=== PATIENT | male | born 1965 | race Caucasian/White ===

== ENCOUNTER 2017-08-19 06:35 | Day surgery (SDC) | payer OTHER, SELFPAY ==
--- NOTE | 2017-08-18 22:52 | PCM.HP.BLA ---
History and Physical Date of Admission: 08/19/17 HISTORY OF PRESENT ILLNESS 51 year old man presents with a soft tissue mass on his right frontal scalp that has increased in size over the last several months. He denies any trauma. He denies any fever. He denies any recent infection or drainage. He states there is some discomfort when he bumps it. He presents at this time for further evaluation and treatment. PAST MEDICAL HISTORY Ankylosing spondylitis. Restless leg syndrome. Microscopic hematuria. Abnormal weight loss. Smoker. PAST SURGICAL HISTORY None MEDICATIONS Tramadol. ALLERGIES Codeine. SOCIAL HISTORY Patient is a smoker. Patient drinks alcohol occasionally. FAMILY HISTORY Patient is adopted. REVIEW OF SYSTEMS General - Denies fever, fatigue. Has some recent weight loss. Eyes - Denies eye pain. Denies cataracts and glaucoma. ENT - Denies nasal congestion and sore throat. Endocrine - Denies excessive thirst and urination. Skin - Has enlarging painful soft tissue mass right frontal scalp. Musculoskeletal - Has joint pain and joint stiffness. Denies weakness of muscles and joints. Has restless leg syndrome. Has ankylosing spondylitis. Has back pain. Neuro - Denies headaches. Cardiovascular - Denies fatique. Denies chest pain. Denies shortness of breath with exertion. Psych - Denies anxiety and depression. Respiratory - Denies chronic cough and shortness of breath. Patient is a smoker. Gastrointestinal - Denies nausea, vomiting, diarrhea, and constipation. Hematologic - Denies abnormal bruising and bleeding. Genitourinary - Denies urinary frequency. Has microscopic hematuria. PHYSICAL EXAMINATION General - Alert and oriented. HEENT - PERRL. EOMI. Throat is clear. On his right frontal scalp is a soft tissue mass that is mobile. Overlying skin is thinned out. Some alopecia noted on the skin over the mass. No evidence of infection. Measures 1.7 cm. No ulceration. Slight tenderness to palpation. Has irregular borders. Neck - Supple and nontender. No cervical adenopathy. Lungs - Clear to auscultation. Heart - Regular rate and rhythm. Abdomen - Soft and nondistended. Extremities - FROM. Radial pulses are palpable. No axillary adenopathy. Neuro - CN II - XII grossly intact. ASSESSMENT 1. 1.7 cm painful soft tissue mass right frontal scalp. 2. Smoker. PLAN Recommend excision of this enlarging soft tissue mass on his right frontal scalp and send it to Pathology for analysis to rule out carcinoma. Depending on how much overlying skin is excised will determine if a skin graft is necessary for reconstruction. Surgery will take place under local anesthesia and IV sedation on an outpatient basis. Patient was informed of the risks and complications of the procedure including alternatives to surgery. These were discussed with him personally. He voices understanding and wishes to proceed. Encouraged the patient to stop smoking as it may have deleterious effects on wound healing.
[2017-08-19] VITALS (7 sets, daily range): BP systolic 92–107; BP diastolic 63–79; PULSE 57–75; RESP 14–18; TEMP 36.2–36.7; O2SAT 97–100; BMI 20.2
--- NOTE | 2017-08-19 07:55 | MASS_PTH ---
PATIENT: CONSUELO ANDRADE LOC: [facility] – [place] U#:[id number] AGE/SX: 51/M ROOM: RE08/19/[address]: Dr. Dhruv Ybarra MD : 1965 BED: DIS: 08/19/2017 SPEC #: [id number] RECD: 08/19/17 11:12 STATUS: BEN CONOR #: [id number] LIA: 08/19/17 07:[address]: Dhruv Ybarra DEPT: SURGICAL PATHOLOGY RECD BY: Consuelo Dias ENTERED: 08/19/17 11:31 SP TYPE: Mass OTHR DR: Dr. Marcelina Andre DO Tissues: Scalp, NOS Procedures: Surgery Specimen Level IV HEADER OPERATION: Excision, mass, frontal scalp, possible skin graft PRE-OP DIAGNOSIS: Soft tissue mass right frontal scalp TISSUE SUBMITTED: Mass right frontal scalp MICROSCOPIC DIAGNOSIS Mass right frontal scalp, biopsy: Epidermal inclusion cyst. SJ:melissa 08/22/17 MICROSCOPIC DESCRIPTION Slides are reviewed. GROSS DESCRIPTION Received in fixative is one container labeled with the patient's name and designated mass, right frontal scalp. The specimen consists of a piece of skin with underlying cyst. The skin piece measures 1.5 x 0.2 cm and the underlying cyst measures 1 x 1 x 0.5 cm. A portion of the cyst appears to be ruptured and shows cyst content filled with robin-white cheesy material. The specimen is bisected and submitted entirely in one cassette. / SJ:rg 08/19/17 TC:5 [facility]: [id number]
[2017-08-19] MEDS: Clindamycin 900 MG/50 ML BAG 75 MG IV (08:00)
[2017-08-19] MEDS: Mupirocin Ointment 22gm Tube 1 APPLIC (08:34)
--- NOTE | 2017-08-19 08:49 | PCM.IMDPSTOP ---
Immediate Post-Op Note Date of Procedure: 08/19/17 Primary Surgeon/Physician: Dhruv Ybarra regulatory compliance specialist: None Pre-Operative Diagnosis: 1. 1.7 cm painful soft tissue mass right frontal scalp. 2. Smoker. Post-Operative Diagnosis: Same. Surgery/Procedure Performed:: Excision 1.7 cm painful soft tissue mass right frontal scalp with 1.7 cm layered closure. Description of Surgical Findings:: 51 year old man presents with a soft tissue mass on his right frontal scalp that has increased in size over the last several months. He denies any trauma. He denies any fever. He denies any recent infection or drainage. He states there is some discomfort when he bumps it. Today the patient underwent excision 1.7 cm painful soft tissue mass right frontal scalp with 1.7 cm layered closure. Estimated Blood Loss: 5 ml. Specimen's removed: Cystic lesion right frontal scalp to Pathology. Drains: None. Type of Anesthesia:: Local MAC - Xylocaine with epinephrine and IV sedation. - Admit VTE Documentation VTE Present on Admission: No VTE Mechan Device Prophylaxis: SCD's VTE Pharm Prophylaxis ordered?: No
--- NOTE | 2017-08-19 08:55 | PCM.DC ---
You will use the following diet at home:: No restrictions Discharge Activity: May not drive while taking narcotic pain medications., May Shower - 2 days. Return to work on:: 08/22/17 - tentative May shower in (days): 2 May resume sexual activity in: No Restrictions Ice area for (Minutes): 5 - as needed for facial swelling. Weight Bearing Status: Weight bearing as tolerated Lifting Restrictions: 20 lbs. Keep extremity elevated above heart level: - - elevate head. Call your doctor if your incision/area has: Continuous Slow Oozing, Sudden Increased Bleeding, Increased Pain/ Swelling, Increased Redness, Foul Smelling Discharge, Swelling at the incision site Call your doctor if you observe: Fever of 101 or Higher, Coldness, Increased Pain, Shortness of breath, Chest pain, Calf discomfort, Uncontrolled pain Suture Line Care: - - antibiotic ointment daily to suture line after dressing removed in two days. Change Dressing in (Days):: 2 Cleanse incision/area with: - - may get incision wet in the shower in two days. Allergies/Adverse Reactions: Allergies codeine Allergy (Severe, Verified 08/12/17 09:42) Nausea/Vom/Diarrhea Medications to take at Discharge tramadol 50 mg tablet 100 mg PO Q6H tab 07/20/17 Azithromycin [Zithromax Z-Sameer] 250 mg PO UD 08/19/17 Clindamycin HCl [Cleocin] 300 mg PO TID #15 cap 08/19/17 Oxycodone HCl/Acetaminophen [Percocet 5/325] 1 - 2 tab PO 4X/DAY PRN PRN 2 Days #15 tab 08/19/17 The following prescriptions were given: Oxycodone HCl/Acetaminophen [Percocet 5/325] 1 - 2 tab PO 4X/DAY PRN PRN 2 Days #15 tab PRN Reason: Pain Clindamycin HCl [Cleocin] 300 mg PO TID #15 cap Primary Care Physician: Marcelina Andre DO [Primary Care Provider] - Please Follow Up With: Dhruv Ybarra MD When: one week. call [phone] for appt. Proposed Discharge Date: 08/19/17
--- NOTE | 2017-08-19 14:42 | PCM.OPRPT ---
Report of Operation Date of Procedure: 08/19/17 Pre-Operative Diagnosis: 1. 1.7 cm painful soft tissue mass right frontal scalp. 2. Smoker. Post-Operative Diagnosis: Same. Surgery/Procedure Performed:: Excision 1.7 cm painful soft tissue mass right frontal scalp with 1.7 cm layered closure. Description of Surgical Findings:: 51 year old man presents with a soft tissue mass on his right frontal scalp that has increased in size over the last several months. He denies any trauma. He denies any fever. He denies any recent infection or drainage. He states there is some discomfort when he bumps it. Patient was informed of the risks and complications of the procedure including alternatives to surgery. These were discussed with him personally. He voices understanding and wishes to proceed. Encouraged the patient to stop smoking as it may have deleterious effects on wound healing. jail manager: None Type of Anesthesia:: Local MAC - Xylocaine with epinephrine and IV sedation. Specimen's removed: Cystic lesion right frontal scalp to Pathology. Drains: None. Estimated Blood Loss (mL): 5 ml. Description of Procedure: Patient was taken to OR in supine position and was given IV sedation. His scalp and neck were prepped and draped in the usual fashion. SCD's were placed for DVT prophylaxis. Perioperative antibiotics were given intravenously. Using xylocaine with epinephrine, the soft tissue mass on his right frontal scalp was infiltrated. After waiting 5 minutes for the anesthetic to take effect, I made an elliptical incision over the mass and dissected down into the subcutaneous tissue. The mass appeared cystic in nature and was well-encapsulated. It was not adherent to the underlying skull. The mass was then sent to Pathology for analysis to rule out carcinoma. The overlying skin that was stretched over the mass appeared viable after the excision. Therefore, I will try and close the incision and not place a skin graft. The wound was irrigated with saline. Hemostasis was obtained with electrocautery. The wound was closed in multiple layers using 5-0 Monocryl interrupted sutures for the deep dermis and subcutaneous tissue. The skin was approximated with 6-0 Prolene simple interrupted sutures. Steri-strips were applied followed by antibiotic ointment and a 2x2 gauze compression dressing. He tolerated the procedure well and was sent to PACU in satisfactory condition. He will be sent home in satisfactory condition on antibiotics and pain medication. He will keep his head elevated during the initial postop period. He will followup in the office in a week for a wound check as well as for discussion of the pathology report and for removal of the sutures. Grafts/Implants Used: None. - Complications None. - Admit VTE Documentation VTE Present on Admission: No VTE Mechan Device Prophylaxis: SCD's VTE Pharm Prophylaxis ordered?: No Code Visit Surgery Charges CPT - 09320 ICD-10 - R22.0, R20.8 60073 R22.0, R20.8
--- NOTE | 2017-08-20 10:43 | OP.PCM_ITS ---
Report of Operation Date of Procedure: 08/19/17 Pre-Operative Diagnosis: 1. 1.7 cm painful soft tissue mass right frontal scalp. 2. Smoker. Post-Operative Diagnosis: Same. Surgery/Procedure Performed:: Excision 1.7 cm painful soft tissue mass right frontal scalp with 1.7 cm layered closure. Description of Surgical Findings:: 51 year old man presents with a soft tissue mass on his right frontal scalp that has increased in size over the last several months. He denies any trauma. He denies any fever. He denies any recent infection or drainage. He states there is some discomfort when he bumps it. Patient was informed of the risks and complications of the procedure including alternatives to surgery. These were discussed with him personally. He voices understanding and wishes to proceed. Encouraged the patient to stop smoking as it may have deleterious effects on wound healing. pharmacist in charge owner: None Type of Anesthesia:: Local MAC - Xylocaine with epinephrine and IV sedation. Specimen's removed: Cystic lesion right frontal scalp to Pathology. Drains: None. Estimated Blood Loss (mL): 5 ml. Description of Procedure: Patient was taken to OR in supine position and was given IV sedation. His scalp and neck were prepped and draped in the usual fashion. SCD's were placed for DVT prophylaxis. Perioperative antibiotics were given intravenously. Using xylocaine with epinephrine, the soft tissue mass on his right frontal scalp was infiltrated. After waiting 5 minutes for the anesthetic to take effect, I made an elliptical incision over the mass and dissected down into the subcutaneous tissue. The mass appeared cystic in nature and was well- encapsulated. It was not adherent to the underlying skull. The mass was then sent to Pathology for analysis to rule out carcinoma. The overlying skin that was stretched over the mass appeared viable after the excision. Therefore, I will try and close the incision and not place a skin graft. The wound was irrigated with saline. Hemostasis was obtained with electrocautery. The wound was closed in multiple layers using 5-0 Monocryl interrupted sutures for the deep dermis and subcutaneous tissue. The skin was approximated with 6-0 Prolene simple interrupted sutures. Steri-strips were applied followed by antibiotic ointment and a 2x2 gauze compression dressing. He tolerated the procedure well and was sent to PACU in satisfactory condition. He will be sent home in satisfactory condition on antibiotics and pain medication. He will keep his head elevated during the initial postop period. He will followup in the office in a week for a wound check as well as for discussion of the pathology report and for removal of the sutures. Grafts/Implants Used: None. - Complications None. - Admit VTE Documentation VTE Present on Admission: No VTE Mechan Device Prophylaxis: SCD's VTE Pharm Prophylaxis ordered?: No Code Visit Surgery Charges CPT - 49842 ICD-10 - R22.0, R20.8 34710 R22.0, R20.8
== END 2017-08-19 09:35 | disposition home or self-care (01) ==
LOC: SDC 06:35 → AC 06:37
PROVIDERS: Family Provider Family Medicine; PCP Family Medicine; Visit Provider Surgery
PROC: (CPT 11422; principal; 2017-08-19 07:45)
DX: L72.0 Epidermal cyst (principal); M45.9 Ankylosing spondylitis of unspecified sites in spine; M06.9 Rheumatoid arthritis, unspecified; F17.200 Nicotine dependence, unspecified, uncomplicated; Z79.2 Long term (current) use of antibiotics; Z79.891 Long term (current) use of opiate analgesic
CPT/HCPCS: 11422; 12032; 88305; J7120

== ENCOUNTER → 2020-07-28 11:42 | Outpatient (CLI) | payer OTHER, SELFPAY ==
[2017-08-26 15:57] VITALS: BMI 20.7
[2020-07-28 15:29] LABS: Absolute Lymphocyte Count 1.94 X10^3/uL (0.83-4.51); Absolute Neutrophil Count 3.5 X10^3/uL (2.0-7.7); Basophil# 0.05 X10^3/uL; Basophil% 0.8 % (0-1); Eosinophils% 1.6 % (0-5); Hematocrit 42.8 % (40-54); Hemoglobin 14.1 g/dL (13.0-16.5); Lymphocyte # 1.94 X10^3/ul (4.0); Lymphocyte % 31.1 % (19-41); Mean Corp Hgb Conc 32.9 g/dL (32-36); Mean Corpuscular Hgb 28.8 pg (27.0-32.0); Mean Corpuscular Volume 87.5 fL (80-94); Mean Platelet Vol. 11.3 fl (6.2-12.0); Monocyte# 0.61 X10^3/uL; Monocyte% 9.8 % (0-10); NRBC Flagged by Analyzer 0 % (0-5); Neutrophil # 3.53 X10^3/uL (2.7-7.7); Neutrophil % 56.5 % (47-70); Platelet Count 235 K/mm3 (150-450); RBC Distribution Width CV 12.9 % (11.6-14.6); RBC Distribution Width SD 41.1 fl (35.1-43.9); Red Blood Count 4.89 M/mm3 (4.6-6.2); White Blood Count 6.2 K/mm3 (4.4-11.0)
[2020-07-28 16:13] LABS: ALB/GLOB Ratio 1.1 RATIO (0.9-2.4); AST(SGOT) 12 U/L (15-37); Alanine Aminotransfer ALT/SGPT 12 U/L (16-61); Albumin, Serum 3.7 g/dL (3.2-5.0); Alkaline Phosphatase 69 U/L (45-117); Anion Gap 5 (5-15); BUN 11 mg/dL (7-18); BUN/Creat Ratio 10.2 RATIO (10-20); Calcium,Total 8.4 mg/dL (8.5-10.1); Chloride 109 mmol/L (98-107); Cholesterol 201 mg/dL (200); Creatinine, Serum 1.08 mg/dL (0.70-1.30); EST Glomerular Filtration Rate 75 mL/min (>60); Est Glom Filt Rate - Afr Amer 91 mL/min (>60); Globulin 3.3 g/dL (2.2-4.2); Glucose 96 mg/dL (74-106); High Density Lipoprotein 37 mg/dL; Sodium Level 142 mmol/L (136-145); Thyroid Stim Hormone (TSH) 1.04 uIU/mL (0.358-3.74); Triglycerides 114 mg/dL; Very Low Density Lipoprotein 23 mg/dL (5-40)
== END ==
PROVIDERS: PCP Family Medicine; Referring Provider Family Medicine; Visit Provider Family Medicine
DX: E78.5 Hyperlipidemia, unspecified (principal); Z51.81 Encounter for therapeutic drug level monitoring
CPT/HCPCS: 36415; 80053; 80061; 84443; 85025

== ENCOUNTER 2021-07-24 13:35 | Outpatient (CLI) | payer OTHER, SELFPAY ==
--- NOTE | 2021-07-24 13:39 | RAD_ITS ---
STUDY: X-RAY - LUMBAR SPINE REASON FOR EXAM: Male, 55 years old. Back pain LOW BACK PAIN TECHNIQUE: XR Spine Lumbar Min 4 Views COMPARISON: None FINDINGS: Normal lumbar lordosis. There is no substantial scoliosis. There is a normal alignment of the vertebrae. There is multilevel endplate spondylosis of the lumbar vertebrae. There is multi-level degenerative disc disease with multi-level disc space narrowing. There are atherosclerotic vascular calcifications. The soft tissue structures are unremarkable. RAD/L/S Spine Min 4 Views IMPRESSION: Degenerative changes of the spine, as detailed above. Electronically Signed: Buzz English MD at 15:29 EST ,
== END 2021-07-24 23:59 | disposition home or self-care (01) ==
LOC: MTRAD 13:37
PROVIDERS: PCP Family Medicine; Referring Provider Family Medicine; Visit Provider Family Medicine
DX: M54.50 Low back pain, unspecified (principal)
CPT/HCPCS: 72110

== ENCOUNTER → 2022-02-20 | Outpatient (CLI) | payer OTHER, SELFPAY ==
--- NOTE | 2022-02-20 08:49 | MRI_ITS ---
STUDY: MRI LUMBAR SPINE WITHOUT CONTRAST REASON FOR EXAM: Male, 56 years old. PAIN radiating into hips and knees TECHNIQUE: Standardized fat and water weighted pulse sequences were obtained in the sagittal and axial planes. COMPARISON: Lumbar spine radiographs 07/24/2021. FINDINGS: No fracture or acute osseous abnormality. Sagittal alignment anatomic. Very mild left scoliosis centered at L3 again demonstrated. Benign hemangioma L1 vertebral body. CONUS terminates at the level of the mid T12 vertebral body with normal contour and signal. Normal arborization of the cauda equina. At L1-2, mild bilateral facet degeneration causes no significant narrowing. At L2-3, small diffuse disc bulge and moderate bilateral facet degeneration causes only mild narrowing of the spinal canal and foramina. At L3-4, small diffuse disc bulge and moderate bilateral facet degeneration causes only mild narrowing of the spinal canal and foramina. At L4-5, small diffuse disc bulge and moderate bilateral facet degeneration causes only mild narrowing of the spinal canal and foramina. At L5-S1, mild bilateral facet degeneration and vertebral body osteophytes cause mild bilateral foraminal narrowing. No significant narrowing of the spinal canal. The paraspinal soft tissues are unremarkable. MRI/Spine Lumbar (Routine) IMPRESSION: Facet greater than disc degeneration. No evidence of nerve root impingement. Electronically Signed: Nixon Berry MD at 1:35 EDT Reading Location ID and State: [facility] / [place] Tel , Service support ,
== END | disposition home or self-care (01) ==
LOC: MRI 08:42
PROVIDERS: PCP Family Medicine; Referring Provider Family Medicine; Visit Provider Family Medicine
DX: M54.16 Radiculopathy, lumbar region (principal)
CPT/HCPCS: 72148

== ENCOUNTER → 2023-08-29 | Outpatient (CLI) | payer SELFPAY | END | disposition home or self-care (01) | LOC: BFHLAB 16:19 | PROVIDERS: PCP Family Medicine; Referring Provider Family Medicine; Visit Provider Family Medicine | DX: Z00.00 Encounter for general adult medical examination without abnormal findings (principal) ==

== ENCOUNTER → 2023-09-03 | Outpatient (CLI) | payer OTHER, SELFPAY ==
[2023-09-03 11:21] LABS: Absolute Lymphocyte Count 1.58 X10^3/uL (0.83-4.51); Absolute Neutrophil Count 3.8 X10^3/uL (2.0-7.7); Basophil# 0.04 X10^3/uL; Basophil% 0.7 % (0-1); Eosinophil# 0.12 X10^3/uL; Hematocrit 44.3 % (40-54); Hemoglobin 14.4 g/dL (13.0-16.5); Lymphocyte # 1.58 X10^3/ul (0.83-4.51); Mean Corp Hgb Conc 32.5 g/dL (32-36); Mean Corpuscular Hgb 28.5 pg (27.0-32.0); Mean Corpuscular Volume 87.5 fL (80-94); Mean Platelet Vol. 10.7 fl (6.2-12.0); Monocyte# 0.55 X10^3/uL; NRBC Flagged by Analyzer 0 % (0-5); Neutrophil # 3.78 X10^3/uL (2.7-7.7); Neutrophil % 62.1 % (47-70); Platelet Count 243 K/mm3 (150-450); RBC Distribution Width CV 12.5 % (11.6-14.6); RBC Distribution Width SD 39.8 fl (35.1-43.9); Red Blood Count 5.06 M/mm3 (4.6-6.2); White Blood Count 6.1 K/mm3 (4.4-11.0)
[2023-09-03 11:28] LABS: Erythrocyte Sedimentation Rate 5 mm/hr (0-20)
[2023-09-03 12:16] LABS: ALB/GLOB Ratio 1.1 RATIO (0.9-2.4); AST(SGOT) 12 U/L (15-37); Alanine Aminotransfer ALT/SGPT 15 U/L (16-61); Albumin, Serum 3.7 g/dL (3.2-5.0); Alkaline Phosphatase 66 U/L (45-117); Anion Gap 2 (5-15); BUN 16 mg/dL (7-18); CRP < 2.90 mg/L (0.0-3.0); Calcium,Total 8.8 mg/dL (8.5-10.1); Chloride 110 mmol/L (98-107); Cholesterol 208 mg/dL (200); EST Glomerular Filtration Rate 81 mL/min (>60); Est Glom Filt Rate - Afr Amer 98 mL/min (>60); Free T3 2.8 pg/mL (2.18-3.98); Globulin 3.4 g/dL (2.2-4.2); Glucose 100 mg/dL (74-106); High Density Lipoprotein 41 mg/dL; PSA,Total - Annual Screen 1.05 ng/mL (0.00-4.00); Potassium 3.8 mmol/L (3.5-5.1); Protein, Total 7.1 g/dL (6.4-8.2); Sodium Level 140 mmol/L (136-145); T4 Free Direct 1.28 ng/dL (0.76-1.46); Thyroid Stim Hormone (TSH) 0.71 uIU/mL (0.358-3.74); Triglycerides 95 mg/dL; Very Low Density Lipoprotein 19 mg/dL (5-40)
[2023-09-06 12:09] LABS: ANTINUCLEAR ANTIBODIES DIRECT Negative (Negative)
[2023-09-12 16:09] LABS: Testosterone, Free 12.25 ng/dL (5.00-21.00); Testosterone, Total 875 ng/dL (264-916)
== END | disposition home or self-care (01) ==
PROVIDERS: PCP Family Medicine; Referring Provider Family Medicine; Visit Provider Family Medicine
DX: M45.9 Ankylosing spondylitis of unspecified sites in spine (principal); Z51.81 Encounter for therapeutic drug level monitoring; R53.83 Other fatigue; R39.198 Other difficulties with micturition; N39.43 Post-void dribbling; E78.5 Hyperlipidemia, unspecified
CPT/HCPCS: 36415; 80053; 80061; 84153; 84402; 84403; 84439; 84443; 84481; 85025; 85652; 86038; 86140; 86225; 86235; G0103

== ENCOUNTER → 2023-09-28 | Outpatient (CLI) | payer OTHER, SELFPAY ==
--- NOTE | 2023-09-28 16:28 | MRI_ITS ---
STUDY: MRI LUMBAR SPINE WITHOUT CONTRAST REASON FOR EXAM: Male, 57 years old. LUMBAR PAIN AND RADICULOPATHY ANKYLOSING SPONDYLITIS TECHNIQUE: Standardized fat and water weighted pulse sequences were obtained in the sagittal and axial planes. COMPARISON: 02/20/2022 FINDINGS: T12-L1: Normal endplates. Normal disc height, hydration and morphology. Normal bilateral facet joints. Normal central canal and bilateral lateral recesses. Normal bilateral intervertebral neural foramina. Normal lumbar lordosis. There is no substantial scoliosis. Normal conus medullaris that terminates at the T12. L1-2: Interval development of a small central disc protrusion with an inferiorly extending component in the left paracentral location producing mild spinal stenosis but no neural foraminal stenosis. L2-3: Interval development of mild bilobed disc protrusion with a superimposed small right paracentral disc extrusion which produces mild spinal stenosis, severe right lateral recess stenosis with effacement of the right L3 nerve root and mild bilateral neural foraminal stenosis. L3-4: Worsening broad disc protrusion which is now moderate in size produces moderate spinal stenosis with moderate bilateral lateral recess stenosis with abutment of the L4 nerve roots bilaterally and mild bilateral neural foraminal stenosis. L4-5: Mild bilateral facet hypertrophy and ligament flavum hypertrophy. No change in a mild broad disc protrusion which produces mild spinal stenosis and mild bilateral neural foraminal stenosis. L5-S1: No change in the 2 mm retrolisthesis of L5 on S1 which produces mild spinal stenosis and mild bilateral neural foraminal stenosis. Normal visualized sacral ala. Normal visualized paraspinous soft tissue structures. MRI/Spine Lumbar (Routine) IMPRESSION: Worsening degenerative disc disease as described above. Electronically Signed: Ab Lozano MD at 20:49 EDT ,
== END | disposition home or self-care (01) ==
LOC: MRI 16:17
PROVIDERS: PCP Family Medicine; Referring Provider Family Medicine; Visit Provider Family Medicine
DX: M54.16 Radiculopathy, lumbar region (principal)
CPT/HCPCS: 72148

== ENCOUNTER → 2025-02-04 | Outpatient (CLI) | payer OTHER, SELFPAY ==
--- NOTE | 2025-02-04 11:10 | RAD_ITS ---
PROCEDURE: CHEST PA AND LATERAL 02/04/2025 REASON FOR EXAM: UPPER RESP. INFECTION TECHNIQUE: Procedure Code: RADCXR Modality: DX Procedure: CHEST PA AND LATERAL COMPARISON: None FINDINGS: Hardware: None Heart: Heart size and configuration are within normal limits. Mediastinum: The mediastinal contour is unremarkable. Lungs: Lungs are hyperinflated with flattening of the hemidiaphragms. There is bulla formation identified in the upper lobes bilaterally. The findings are compatible with COPD.There is no atelectasis, consolidation, effusion or pneumonic infiltrate. Bones: There is a subtle dextroscoliosis of the thoracic spine. Spondylosis of the thoracic spine is noted. RAD/Chest PA and Lateral IMPRESSION: COPD. NO ACUTE FINDINGS. Reading Location: [id number]
== END | disposition home or self-care (01) ==
LOC: MTRAD 11:08
PROVIDERS: PCP Family Medicine; Referring Provider Nurse Practitioner Family; Visit Provider Nurse Practitioner Family
DX: J06.9 Acute upper respiratory infection, unspecified (principal)
CPT/HCPCS: 71046